=== PATIENT | female | born 1960 | race Caucasian/White ===

== ENCOUNTER 2019-07-22 08:42 | Inpatient (IN) | payer MEDICARE, MEDICAID, SELFPAY ==
[2019-07-19 14:57] VITALS: BMI 37.0
[2019-07-22] VITALS (13 sets, daily range): BP systolic 85–138; BP diastolic 50–85; PULSE 61–84; RESP 12–16; TEMP 36.4–37.1; O2SAT 94–97; BMI 37.0
--- NOTE | 2019-07-22 | DI.RAD.S_ITS ---
PROCEDURE: XR HIP W PEL IF DONE RT 2V INDICATIONS: TOTAL HIP ARTHROPLASTY RIGHT POST OP TECHNIQUE: AP pelvis and lateral view of the right hip acquired. COMPARISON: None. FINDINGS: Bones: Patient is status post right total hip arthroplasty, with hardware components in expected positions. The hip joint appears congruent. The visualized bony structures appear intact. Soft tissues: Overlying postoperative changes are noted. No suspicious soft tissue densities. IMPRESSION: Post right total hip arthroplasty changes with anatomic right hip alignment. Dictated by: Lamine Cam M.D. on 07/22/2019 at 15:23 Approved by: Lamine Cam M.D. on 07/22/2019 at 15:24
--- NOTE | 2019-07-22 08:13 | DI.RAD.S_ITS ---
PROCEDURE: XR PELVIS 1-2V INDICATIONS: Postop right total hip TECHNIQUE: Intra-operative view of the pelvis and hip acquired. COMPARISON: None. FINDINGS: Bones: Intraoperative devices prior to placement of arthroplasty prostheses are in expected positions. No fractures or suspicious bony lesions. Soft tissues: Overlying surgical retractors are present, along with other intraoperative changes. IMPRESSION: Expected intraoperative appearance during left total hip arthroplasty with preliminary components for sizing and angulation in place, in preparation for placement of final components of left total hip arthroplasty. Dictated by: Ferny Marcus M.D. on 07/22/2019 at 13:27 Approved by: Ferny Marcus M.D. on 07/22/2019 at 13:28
[2019-07-22] MEDS: CELECOXIB 200 MG CAPSULE PO (09:09)
[2019-07-22] MEDS: PREGABALIN 75 MG CAPSULE PO (09:09)
[2019-07-22] MEDS: ACETAMINOPHEN 325 MG TABLET 975 MG PO ×3 (09:09→20:16)
[2019-07-22] MEDS: LACTATED RINGERS 1,000 ML 100 ML IV ×2 (09:19→13:15)
[2019-07-22] MEDS: VANCOMYCIN 1,000 MG/200 ML PIGGYBACK 200 MG IV (09:43)
[2019-07-22] MEDS: FAMOTIDINE 20 MG/50 ML PIGGYBACK 200 MG IV (10:45)
--- NOTE | 2019-07-22 11:05 | PM.PREOP ---
Pre-operative Note Interval Note History & Physical reviewed/Exam performed by Physician: Yes Changes to H&P: No H&P completed within 30 days and has changed as indicated here:: UA positive for blood, will repeat postop
--- NOTE | 2019-07-22 11:06 | PM.OP.1 ---
Operative Date/Time/Diagnoses Date of procedure: 07/22/19 Time of procedure: 11:23 Pre-op diagnosis: right hip OA Post-op diagnosis: same Procedure & Clinicians Procedure: Right total hip arthroplasty Same procedure as scheduled: Yes Indications: The patient has had progressively worsening right hip pain with radiographic changes consistent with arthritis. Non-operative management has failed and the patient has requested total hip replacement. The risks, benefits and alternatives to surgery were discussed with the patient prior to proceeding. Risks discussed included, but were not limited to, failure to relieve pain, leg length discrepancy, dislocation, stiffness, infection, nerve damage, deep venous thrombosis, pulmonary embolism, stroke, coma, heart attack, permanent paralysis and , as well as the potential need for eventual revision of the prosthetic. Surgeon: Megan Riley Silversmith Apprentice: Pavithra Holland Anesthesia Type: General Operative Notes Findings: Right hip effusion, severe right hip osteoarthritis, adequate stability Closure Type: primary Specimen(s): none sent Prosthetic devices, grafts, tissues, transplants, or devices: Riley [employer] Nephew R3 54 mm acetabulum, neutral poly liner, 36+ 0 head, size 4 standard offset anthology Applied: drain(s) Estimated Blood Loss (mL): 250 Blood products transfused: none Procedure in detail: The patient was seen in the pre-operative area, where the patient identified the right hip as the operative site and this was marked with my initials. The patient received pre-operative antibiotics and was taken to the operating room and placed on the operative table in the left lateral decubitus position after satisfactory anesthesia. A real time operator out was performed. The right leg was prepared from the ankle to the iliac crest with ChloroPrep in the usual fashion and draped through sterile drapes. The hip was approached through an approximately 24 cm incision centered over the greater trochanter and curving gently posteriorly as it went proximally. This was carried sharply to the fascia dinesh, which was divided and retracted with a self retaining retractor. The trochanteric bursa was excised with care being taken to avoid the sciatic nerve, which was identified and protected throughout the case. The short external rotators were incised and the capsulomuscular flap was raised and tagged for later repair. The hip was dislocated, and a femoral neck osteotomy performed approximately 15 mm above the lesser trochanter. Retractors were placed around the femur. The canal was opened with a box cutting osteotome, followed by a T handled reamer and a lateralizing reamer. The chili pepper broach was then used, followed by sequential broaching until there was good stability of the broach in the femur. Retractors were placed to expose the acetabulum. The labrum and central soft tissues were removed. Reaming was performed initially going up in 2 mm increments, then 1 mm increments until good bite was obtained with an odd sized reamer. The cup 1 mm larger than the last reamer was then inserted using the appropriate anteversion guides. A trial neutral liner was placed. The broach was placed in the canal. A trial head and neck were then placed and the hip relocated and checked for leg length and stability. An intraoperative film confirmed the component position and no evidence of fracture. The patient was stable in the position of sleep, of squatting, and could be put through a range of motion with 45 degrees internal rotation without dislocation. At 90 degrees flexion, internal rotation to 70 was possible before dislocation. This was felt to be satisfactory and the appropriate components were opened, and the trials were removed. The acetabular liner was impacted into position. The final stem was then impacted into the prepared femoral canal. A brief Betadine soak was performed while trialing with head options. The hip was meticulously irrigated with normal saline. Finally the femoral head was impacted onto the stem. The acetabulum was cleared of all material and the hip relocated one final time. The capsulomuscular flap was then repaired to the greater trochanter though an awl hole using the tag sutures. The short external rotators were repaired with a nonabsorbable suture. A deep drain was placed and brought out anteriorly. The fascia dinesh was closed with Vicryl. The subcutaneous layer was closed with barbed sutures and skin beau. A pool dressing was applied and the patient was taken to recovery having tolerated the procedure well. Complications: none Post-operative Condition: stable Disposition: Acute Care Plan for aftercare: The patient will be maintained on a standard total hip replacement protocol with weight bearing as tolerated and posterior hip precautions. The patient will receive Aspirin and sequential compression devices for DVT prophylaxis. The patient will be discharged home when safe for the home environment.
[2019-07-22] MEDS: CEFAZOLIN 2 GM/100 ML FROZ.PIGGY IV ×2 (11:17→18:16)
--- NOTE | 2019-07-22 12:00 | SUR.OPER ---
Lateral on padded OR bed. Gel axillary roll. Arms secured on padded armboard with pillow supporting top arm. Padded hip positioner braces x4 - anterior and posterior chest and pelvis. Additional gel pad used anterior pelvis. Gel pad under bottom leg from knee to foot and secured with tape over sheet.
[2019-07-22] MEDS: TRANEXAMIC ACID 1,000 MG VIAL 1000 MG INJ ×2 (12:04→13:00)
[2019-07-22] MEDS: BUPIVACAINE 0.25% W/ EPI 30 ML VIAL 60 ML INJ (12:05)
[2019-07-22] MEDS: BUPIVACAINE LIPOSOME 266 MG/20 ML VIAL INJ (12:05)
[2019-07-22] MEDS: EPINEPHrine 1 MG/ML AMPUL SUBCUT (12:08)
--- NOTE | 2019-07-22 12:50 | PM.PROC.1 ---
Procedures Date/Time Date of procedure: 07/22/19 Time of procedure: 11:25 Lumbar Puncture Pre-procedure diagnosis: osteoarthritis, for MABEL Post-procedure diagnosis: same Time Out Performed: Yes Patient Position: upright (seated) Skin Prep: Povidone-Iodine 1% Local anesthetic used: Lidocaine 1% Sedation: other (midazolam 1mg) Needle size: other (24g sprotte) Needle length: 3.5 Interspace: L 3-4 Number of attempts: 2 Opening pressure: not done Fluid collected (mL): 0 Fluid description: clear Complications: No Comments: Subarachnoid block (SAB) for Post-op pain management, intrathecal narcotics. 12mg bupivacaine, MPF, and 200mcg DURAMORPH.
[2019-07-22] MEDS: PREGABALIN 50 MG CAPSULE 200 MG PO ×2 (16:00→20:18)
[2019-07-22] MEDS: PANTOPRAZOLE 40 MG TABLET PO (16:01)
[2019-07-22] MEDS: LACTATED RINGERS 1,000 ML 125 ML IV (16:01)
[2019-07-22] MEDS: OXYCODONE/ACETAMINOPHEN 5/325 TABLET 1 TAB PO ×2 (16:08→20:17)
[2019-07-22] MEDS: ALBUTEROL 2.5 MG/3 ML NEB (ADULT) INH (17:22)
[2019-07-22] MEDS: MONTELUKAST 10 MG TABLET PO (18:09)
[2019-07-22] MEDS: diphenhydrAMINE 50 MG/ML VIAL 25 MG IV (18:09)
[2019-07-22 18:42] LABS: Bacteria Urine None Seen
[2019-07-22 18:56] LABS: Culture Indicated Urine Cult Not Indicated; RBC Urine 0-1/HPF (0-5/HPF); WBC Urine 0-1/HPF (0-5/HPF)
[2019-07-22] MEDS: ASPIRIN EC 81 MG TABLET PO (20:18)
[2019-07-22] MEDS: DOCUSATE 100 MG CAPSULE PO (20:18)
[2019-07-23] MEDS: LACTATED RINGERS 1,000 ML 125 ML IV (01:12)
--- NOTE | 2019-07-23 01:22 | PC.NURSE ---
Energy And Conservation Technician Note: Resting in bed. Vital signs stable. IV in place in lt hand with LR infusing at 125cc/hr. Dressing to rt hip cdi, with hemovac intact and compressed. Pt has home CPAP on. resting at bedside.
[2019-07-23] MEDS: OXYCODONE IR 5 MG TABLET PO ×2 (01:48→05:59)
[2019-07-23] MEDS: diphenhydrAMINE 50 MG/ML VIAL 25 MG IV ×3 (01:49→11:34)
[2019-07-23] MEDS: CEFAZOLIN 2 GM/100 ML FROZ.PIGGY IV (02:20)
[2019-07-23 05:56] VITALS: BP 115/74; PULSE 81; RESP 16; TEMP 37.2
[2019-07-23 06:55] LABS: Hematocrit 29.2 % (36-46)
--- NOTE | 2019-07-23 08:08 | PM.DS.1 ---
History of Present Illness History of Present Illness Date Patient Seen: 07/23/19 Time Patient Seen: 08:09 Chief complaint: [id number] RIGHT TOTAL HIP ARTHROPLASTY Narrative: The patient has had progressively worsening right hip pain with radiographic changes consistent with arthritis. Non-operative management has failed and the patient has requested total hip replacement. The risks, benefits and alternatives to surgery were discussed with the patient prior to proceeding. Risks discussed included, but were not limited to, failure to relieve pain, leg length discrepancy, dislocation, stiffness, infection, nerve damage, deep venous thrombosis, pulmonary embolism, stroke, coma, heart attack, permanent paralysis and , as well as the potential need for eventual revision of the prosthetic. Discharge Providers Provider Date of admission: 07/22/19 08:42 Discharge Date: 07/23/19 Primary care physician: Tre Alvarez MD Consults: 07/22/19 08:13 Consult to Anesthesiology Routine Comment: Consulting Provider: Anesthesiologist Reason for consultation: Regional block for post operative pain control 07/22/19 09:36 Consult to Respiratory Therapy Evaluate & Treat Comment: Physician Instructions: Evaluate and treat 07/22/19 12:28 Consult to Respiratory Therapy Evaluate & Treat Comment: asthma, SUSANA+CPAP, post MABEL Physician Instructions: Evaluate and treat 07/22/19 15:23 Consult to Discharge Planning Routine Comment: Consult to Physical Therapy Evaluate & Treat Comment: Physician Instructions: post op MABEL protocol Consult to Respiratory Therapy Evaluate & Treat Comment: Physician Instructions: Evaluate and treat Discharge provider: Erma Campo PA-C Summary Hospital Course Discharge Diagnosis: s/p right total hip arthroplasty posterior approach Sleep apnea with CPAP Restless legs syndrome Osteoporosis Osteoarthritis Iron deficiency anemia Hypertension Migraines GERD Fibromyalgia Asthma Anxiety Hospital Course: Yoly was admitted for a right total hip arthroplasty posterior approach with Dr. Riley. Hospital course was unremarkable. Postop day 1 patient was ready to discharge home. Patient had gross hematuria preoperatively. Urinalysis done last night with no hematuria. Another urinalysis done prior to discharge with trace hematuria. Patient has been on oxycodone 7.5/325 mg preoperatively prescribed by her primary care. She discharged home with oxycodone 10 mg. She is eating and voiding without difficulty or assistance prior to discharge. She was mobilizing with physical therapy prior to discharge. She has outpatient PT scheduled. Anika drain was CDI. ASA 81 mg b.i.d. for DVT prophylaxis. Patient pulled out her drain last night. Status at Discharge Functional status at discharge: uses cane/walker Exam Vital Signs (past 8 hours): - 07/23/19 05:56 Temperature 98.9 F Pulse Rate 81 Respiratory Rate 16 Blood Pressure 115/74 Oxygen Delivery Method Room Air Oxygen Flow Rate 0 Narrative Exam Narrative: Patient is sitting up in bed in no acute distress. She is alert or x3. Compress, nontender bilaterally. Pulses are symmetrical. She is able to actively dorsiflex plantar flex. Anika dressing intact. Drain was removed last night by patient. Patient will need oxycodone 10 mg to control pain. No other complaints. Objective Labs Result Diagrams: 07/23/19 06:46 Labs: Laboratory Results - last 24 hr 07/22/19 07/23/19 17:50 06:46 Hgb 10.0 L Hct 29.2 L Urine RBC 0-1/hpf Urine WBC 0-1/hpf Urine Bacteria None seen Ur Culture Indicated? Cult not indicated Discharge Plan Discharge Plan Patient Disposition: Home Discharge Med Rec/Prescriptions Prescriptions: New acetaminophen 325 mg Tablet 975 mg PO TID Qty: 60 RF: 0 aspirin 81 mg Tablet,Delayed Release (Dr/Ec) 81 mg PO BID Qty: 60 RF: 0 docusate sodium [DOK] 100 mg Capsule 100 mg PO BID Qty: 60 RF: 0 oxycodone 10 mg Tablet 10 mg PO Q4-6H PRN (Reason: Pain, Severe (7-10)) Qty: 50 RF: 0 Continued Lyrica 200 MG capsule 200 mg PO TID Qty: 0 RF: 0 norethindrone ac-eth estradiol [Jinteli] 1 MG/5 MCG tablet 1 tab PO QDAY Qty: 0 RF: 0 meclizine 25 MG tablet 25 mg PO Q6H PRN (Reason: Vertigo) Qty: 0 RF: 0 sumatriptan succinate 50 mg Tablet 50 mg PO Q2-4H PRN (Reason: Migraine Headache) RF: 0 pramipexole 0.5 mg Tablet 0.5 mg PO DAILY RF: 0 albuterol sulfate 90 mcg/actuation Hfa Aerosol Inhaler 2 puff INHALATION Q4-6H PRN (Reason: Shortness Of Breath) RF: 0 Restasis 0.05 % Dropperette 1 drp EYE-BOTH BID RF: 0 Symbicort 160-4.5 mcg/actuation Hfa Aerosol Inhaler 2 puff INHALATION BID RF: 0 albuterol sulfate 2.5 mg /3 mL (0.083 %) Solution For Nebulization 2.5 mg INHALATION QID RF: 0 pantoprazole 40 mg Tablet,Delayed Release (Dr/Ec) 40 mg PO Q2D RF: 0 ferrous sulfate 325 mg (65 mg iron) Tablet 325 mg PO DAILY RF: 0 montelukast 10 mg Tablet 10 mg PO QPM RF: 0 loratadine [Claritin] 10 mg Tablet 10 mg PO DAILY RF: 0 escitalopram oxalate 20 mg Tablet 20 mg PO DAILY RF: 0 diltiazem HCl 120 mg Tablet Extended Release 24 Hr 120 mg PO DAILY RF: 0 Amitiza 24 mcg Capsule 24 mcg PO BID RF: 0 Neupro 6 mg/24 hour Patch 24 Hour 6 mg TRANSDERMAL DAILY RF: 0 Discontinued oxycodone-acetaminophen [Percocet] 7.5-325 mg Tablet 1 tab PO Q8H PRN (Reason: Pain) RF: 0 Follow up/Referrals: Tre Alvarez MD [Primary Care Provider] - As previously scheduled Megan Riley MD [Physician] - Provider Discharge Instructions Activity: [facility] protocol. Posterior hip precautions Cold/Heat Therapy: as needed Skin/Wound/Dressing Care Report to your healthcare provider any signs of infection, such as:: chills, fever and increased pain Dressing: Leave in place until appointment Visit Report/Discharge Packet Instructions: DI for Hip Replacement Stand Alone Forms: Surgery Discharge Visit Report Forms: Stroke Signs & Symptoms Discharge Data Primary Care Provider: Tre Alvarez Quality VTE Deep Vein Thrombosis/Pulmonary Embolism Present on Admission: No
[2019-07-23 08:15] VITALS: BP 135/76; PULSE 80; RESP 18; TEMP 37.2
[2019-07-23] MEDS: ALBUTEROL 2.5 MG/3 ML NEB (ADULT) INH (09:02)
[2019-07-23 09:04] LABS: Bacteria Urine None Seen; RBC Urine None Seen (0-5/HPF); WBC Urine None Seen (0-5/HPF)
[2019-07-23 09:05] VITALS: PULSE 73; RESP 12; O2SAT 95
[2019-07-23 09:15] LABS: Appearance Urine UA CLEAR; Bilirubin Urine UA NEGATIVE (NEGATIVE); Color Urine UA YELLOW; Glucose Urine UA NEGATIVE (Negative); Ketones Urine UA NEGATIVE (NEGATIVE); Leukocyte Esterase Urine UA NEGATIVE (NEGATIVE); Nitrite Urine UA NEGATIVE (Negative); Occult Blood Urine UA TRACE-LYSED (Negative); Protein Urine UA NEGATIVE (Negative); Specific Gravity Urine UA <=1.005 (1.000-1.035); Urobilinogen Urine UA 0.2 E.U./dL (0.2)
[2019-07-23] MEDS: OXYCODONE IR 5 MG TABLET 10 MG PO ×2 (09:18→12:46)
[2019-07-23] MEDS: LORATADINE 10 MG TABLET PO (09:20)
[2019-07-23] MEDS: PREGABALIN 50 MG CAPSULE 200 MG PO (09:20)
[2019-07-23] MEDS: DOCUSATE 100 MG CAPSULE PO (09:20)
[2019-07-23] MEDS: ASPIRIN EC 81 MG TABLET PO (09:20)
[2019-07-23] MEDS: ACETAMINOPHEN 325 MG TABLET 975 MG PO (09:20)
[2019-07-23 09:23] LABS: Culture Indicated Urine Cult Not Indicated; Squamous Epithelial Cell Urine 0-1 /HPF (0-5/HPF)
[2019-07-23] MEDS: ESCITALOPRAM 10 MG TABLET 20 MG PO (09:23)
[2019-07-23] MEDS: dilTIAZem CD 120 MG CAP PO (09:23)
[2019-07-23] MEDS: PRAMIPEXOLE 0.25 MG TABLET 0.5 MG PO (09:23)
[2019-07-23] MEDS: FERROUS SULFATE 325 MG TABLET PO (09:30)
--- NOTE | 2019-07-23 09:33 | CM.IDA ---
Initial DCP Assessment Note: Pt is a 59 yo female, resident of [place], now POD#1 from Rt hip surgery w/ Dr Riley PCP: Tre Alvarez Payer: [facility] [place]/Medicaid Reviewed chart, pt discussed in multidisciplinary rounds this morning. Therapy is pending today, pt has planned for home, DC order from [facility] has already been initiated this morning. No needs expected from DC planning team although will remain available in case this changes today. ASTRID Jovel
[2019-07-23 11:06] VITALS: BP 111/58; PULSE 82; RESP 18; TEMP 36.9
--- NOTE | 2019-07-23 12:21 | PT.IIE ---
Current Diagnoses Unilateral primary osteoarthritis, right hip (07/22/19) Surgery Performed Operation Date: 07/22/19 10:45 Actual Procedures p Total Hip Arthroplasty-Posterior(Right) - Megan Riley MD Surgical History (Last Updated 07/19/19 @ 15:03 by Rola Calvillo RN) History of bilateral knee arthroplasty (Acute) Hx of appendectomy (Acute) Hx of bariatric surgery (Acute) Hx of cholecystectomy (Acute) S/P cervical spinal fusion (Acute) S/P foot surgery, right (Acute) Medical History (Last Updated 07/19/19 @ 15:03 by Rola Calvillo RN) Anxiety (Acute) Asthma (Acute) Chronic constipation (Acute) Fibromyalgia (Acute) Former smoker (Acute) GERD (gastroesophageal reflux disease) (Acute) HTN (hypertension) (Acute) Iron deficiency anemia (Acute) Migraines (Acute) SUSANA on CPAP (Acute) Osteoarthritis (Acute) Osteoporosis (Acute) RLS (restless legs syndrome) (Acute) Vertigo (Acute) Physical Therapy Inpatient Evaluation/Re-Eval M1 PT/OT-IP Prior Functional Status Start: 07/23/19 08:41 Freq: NEEDED Status: Active Protocol: Document 07/23/19 10:20 (Rec: 07/23/19 12:21 [email or web address]) Medical Review Prior Functional Status Medical History Reviewed Yes Diet/Fluid Consistency Regular Communication No deficits noted. Mobility and Gait Pt needed assistance from to get over a 2' threshold for bathtub. Used SPC for mobility occasionally, but mostly independent without using AD for home and community mobility. Activities of Daily Living and IADL's Independent for ADLs and IADLs without AD. Social History Household Members spouse Living Arrangements House Number of Floors (Floors) One Floor Number of Stairs To Enter/Railing? 5 SURAJ with R rail to front porch 1 SURAJ to the deck from the back entrance. Home Environment Standard Height Toilet Home Equipment Straight Cane,Crutches,Raised Toilet Seat Without Armrests, Hand Held Shower Employment Status Unemployed Additional Social History Comment Pt lives with her in [facility]. Pt is disabled and is retired who will be to assist as needed. Pt's son in law and dtr in law live in [place] and able to assist as well. Pt scheduled for outpatient PT at [facility] starting from 30th. M2 PT-IP Current Condition Start: 07/23/19 08:41 Freq: NEEDED Status: Active Protocol: Document 07/23/19 10:20 HH (Rec: 07/23/19 12:21 [email or web address]) Physical Therapy Current Condition Current Condition Evaluation Date 07/23/19 Treatment Diagnosis R MABEL (post approach), difficulty in walking Onset Date 07/22/19 Precautions Posterior Hip Precautions No Hip Flexion > 90 degrees,No Hip Internal Rotation,No Hip Adduction Weight Bearing Status Weight Bearing Status Weight Bear as Tolerated M3 PT-IP Subjective Start: 07/23/19 08:41 Freq: NEEDED Status: Active Protocol: Document 07/23/19 10:20 HH (Rec: 07/23/19 12:21 [email or web address]) Subjective Physical Therapy Visit Type Type Initial Evaluation Visit Start Time 10:20 Visit Stop Time 10:45 Total Visit Minutes 25 Notes Pt's attended session Number of ASSET AVAILABILITY LEADER Visits 0 Physical Therapy Visit Comments Patient Comments I am doing pretty good. Patient Goals to return home with Therapy Pain Assessment Pain When Pain Assessed During Mobility Pain Present Pain Present Pain Reported Location Right Hip Intensity 3 Description Acute Pain Management Techniques Apply Cold,Modification of Treatment,Timing of Activity with Medications M4 PT-IP Mobility and Gait Start: 07/23/19 08:41 Freq: NEEDED Status: Active Protocol: Document 07/23/19 10:20 HH (Rec: 07/23/19 12:21 [email or web address]) PT-Bed Mobility Assessment Rolling Type of Rolling Roll to Right Level of Assist Standby Assistance Supine to Sit Supine to Sit Standby Assistance Sit to Supine Sit to Supine Standby Assistance Scooting Scooting to Edge of Bed Standby Assistance PT-Transfer Assessment Sit to and From Stand Sit to and from Stand Standby Assistance Equipment Transfer Assistive Device Gait Belt,Front Wheeled Walker Orthotic/Prosthetic Devices or Brace: No Transfers Transfer Destination Bed,Chair Transfer Technique Stand Step Pivot Transfer Ability Level of Assist Standby Assistance,Use of Upper Extremities Comments Mobility Comments Pt got up of bed to R side EOB with active straight leg raise on RLE. She stood up with SBA and FWW who was able to evenly WB on both LEs. Pt then amb around the hallway with step through pattern and FWW SBA. Pt appears very steady with a close to normal gait speed. She is also very aware of her precautions and able to use small steps during turns to avoid excessive hip IR. Gait Assessment Gait Gait Assistance Required: Standby Assistance Distance (Feet) 180 Able to Maintain Weight Bearing Status Yes During Gait Assistive Devices Assistive Device Gait Belt,Front Wheeled Walker Orthotic/Prosthetic Devices or Brace: No Gait Deviations General Gait Pattern Antalgic,Decreased Stride Length,Decreased Feet Clearance Factors Limiting Gait Function Factors Limiting Gait Function Decreased Activity Tolerance, Decreased Strength,Limited Range of Motion,Pain Comments Gait Comments see mobility comments Stair Climbing Assessment Evaluation Level of Assist On Stairs 1 Person Assistance Devices Stair Climbing Assistive Devices None Technique/Endurance Stair Climbing Direction Ascend and Descend Stair Climbing Technique Step to Step Number of Steps Climbed 3 Query Text: Stair Climbing Set # Repetitions (reps) 2 Comments Stair Climbing Comments Pt does not have railings for back entrance. Educated to have hand held assistance on her R side for stair climbing. PT-Balance Assessment Sitting Balance and Reactions Static Sitting Balance Ability Normal Dynamic Sitting Balance Ability Normal Standing Balance and Reactions Static Standing Balance Ability Normal Dynamic Standing Balance Ability Normal Device Used FWW M5 PT-IP Objective Assessments Start: 07/23/19 08:41 Freq: NEEDED Status: Active Protocol: Document 07/23/19 10:20 (Rec: 07/23/19 12:21 [email or web address]) Orientation Orientation/Cognition Level of Alertness Alert Orientation Name,Age,Birthday,Month,Date, Year,Day of Week,Place, Situation Language Function Ability No Deficits Noted Safety Awareness Understands Safety Issues Memory Description No Deficits Noted Gross Range of Motion Upper Extremity ROM Assessment Within Functional Limits Lower Extremity ROM Assessment Right Impaired Strength Upper Extremity Strength Assessment Within Functional Limits Lower Extremity Strength Assessment Right Impaired Hip 4/5 Knee 4+/5 Coordination Assessment Gross Coordination Gross Coordination WNL Sensation Assessment Sensation Gross Sensation WNL Light Touch Intact Proprioception (Position) Intact Muscle Tone Muscle Tone WNL Yes M6 PT-IP Treatment Start: 07/23/19 08:41 Freq: NEEDED Status: Active Protocol: Document 07/23/19 10:20 (Rec: 07/23/19 12:21 [email or web address]) Physical Therapy Treatment Exercises Exercises Ankle Pumps,Gluteal Sets,Quad Sets Education Education Provided Precautions,Weight Bearing Status,Post-Op Packet,Safety Equipment Issued Equipment Type and Company FWW M7 PT-IP Assessment and Plan Start: 07/23/19 08:41 Freq: NEEDED Status: Active Protocol: Document 07/23/19 10:20 (Rec: 07/23/19 12:21 [email or web address]) PT Summary Assessment and Plan Potential Rehabilitation Potential Excellent Status of Condition at Evaluation Stable Summary Impairments Pain,ROM,Strength,Bed Mobility ,Transfers,Gait,Activity Tolerance Progress Towards Goals Safe For Discharge Assessment Summary Pt is a low complexity who is post op R MABEL with post approach. Upon assessment, pt recalled all 3/3 precautions and able to perform all bed mobility, transfers and amb with FWW and SBA. Pt also able to climb 3 steps with hand held assistance since she does have railings at home. Educated pt's to assist from pt's right side. Pt overall appears very steady and has good safety awareness so she will be safe to d/c home at this point with family assistance as needed and outpatient PT to improve strength and mobility. Also recommended pt to acquire transfer bench for tub access. Frequency of Treatment Frequency Of Treatment Discharge Recommendations To Nursing Amount of Assist Needed Standby Assistance Discharge Recommendations PT Discharge Recommendations Home with Assistance, Outpatient PT Equipment Needed for Home Before transfer bench Discharge
--- NOTE | 2019-07-23 13:02 | PC.NURSE ---
Pt dressed and ready for discharge home with Spouse. Pt was given pain meds prior to discharge for pain control and reminded to not drive while on narcotics. Pt was also advised to drink plenty of fluids to prevent constipation, not to exceed 4000mg of Tylenol in a 24 hour periord and to follow her hip precautions. Stroke education was completed. Pt is aware of her follow up appointment. Reviewed d/c meds and time of last dose. Pt denies further questions and was taken out via w/c by CLEAN UP PERSON to POV with Spouse and all belongings.
== END 2019-07-23 13:05 | disposition home or self-care (01) | DRG 470 ==
LOC: AC 11:23 → ICU 12:04 → AC 14:57
PROVIDERS: Physician Assistant Surgical; Admitting Provider Orthopaedic Surgery; PCP Family Medicine; Visit Provider Orthopaedic Surgery
PROC: 0SR90JZ Replacement of Right Hip Joint with Synthetic Substitute, Open Approach (ICD-10-PCS; CPT 27130; principal; 2019-07-22 10:45)
DX: M16.11 Unilateral primary osteoarthritis, right hip (principal); M40.15 Other secondary kyphosis, thoracolumbar region; G47.33 Obstructive sleep apnea (adult) (pediatric); G25.81 Restless legs syndrome; I10 Essential (primary) hypertension; K21.9 Gastro-esophageal reflux disease without esophagitis; M79.7 Fibromyalgia; J45.909 Unspecified asthma, uncomplicated; F41.9 Anxiety disorder, unspecified; M25.451 Effusion, right hip; D50.9 Iron deficiency anemia, unspecified; E65 Localized adiposity; R31.0 Gross hematuria; Z98.84 Bariatric surgery status; Z87.891 Personal history of nicotine dependence; Z68.37 Body mass index [BMI] 37.0-37.9, adult
CPT/HCPCS: 36415; 72170; 73502; 81001; 81015; 85014; 85018; 94640; 94760; 94762; 97161; 97530; C1776; C9290; J0171; J0690; J1100; J1200; J2250; J2274; J2405; J2704; J3010; J7613

== ENCOUNTER → 2021-12-18 13:07 | Outpatient (CLI) | payer OTHER, MEDICAID, SELFPAY ==
[2019-07-22 15:35] VITALS: BMI 37.0
[2021-12-18 14:32] LABS: COVID19 -Nasal RAPID Negative (Negative)
== END ==
PROVIDERS: PCP Family Medicine; Visit Provider Family Medicine Sleep Medicine
DX: Z20.822 Contact with and (suspected) exposure to COVID-19 (principal)
CPT/HCPCS: 87635; C9803

== ENCOUNTER 2021-12-21 12:02 | Day surgery (SDC) | payer OTHER, MEDICAID, SELFPAY ==
[2019-07-22 15:35] VITALS: BMI 37.0
[2021-12-07 12:46] VITALS: BMI 35.7
[2021-12-21] VITALS (7 sets, daily range): BP systolic 114–138; BP diastolic 56–81; PULSE 61–72; RESP 12–18; TEMP 36.4–37.2; O2SAT 94–98; BMI 35.7
--- NOTE | 2021-12-21 | DI.RAD.S_ITS ---
PROCEDURE: XR FOOT RT 2V INDICATIONS: RT FOOT 2ND, 3TH AND 4TH JOINT FUSION TECHNIQUE: 3 intraoperative spot fluoroscopic images. COMPARISON: [facility] [place], [place], XR FOOT 3+ VIEWS RIGHT, 02/07/2021, 13:38. FINDINGS: Intraoperative spot fluoroscopic images demonstrate percutaneous wire placement through the 2nd through 4th toes, with the lateral wire extending into the 4th metatarsal. Probable 3rd metatarsal osteotomy with intra fragmentary screw fixation. Stable arthroplasty at the 1st metatarsal head. IMPRESSION: Postsurgical changes to the 2nd through 4th rays as described above. Dictated by: Fazal Cantrell M.D. on 12/21/2021 at 19:34 Approved by: Fazal Cantrell M.D. on 12/21/2021 at 19:36
[2021-12-21] MEDS: LACTATED RINGERS 1,000 ML 100 ML IV (13:02)
--- NOTE | 2021-12-21 14:56 | PM.PREOP ---
Pre-operative Note COVID-19 COVID-19 status: Negative Result date/Date tested (Pos, Neg/Pending): 12/18/21 Interval Note History & Physical reviewed/Exam performed by Physician: Yes Changes to H&P: No
--- NOTE | 2021-12-21 14:57 | PM.OP.1 ---
Operative Date/Time/Diagnoses Date of procedure: 12/21/21 Time of procedure: 14:57 Pre-op diagnosis: Right foot metatarsalgia, painful hammertoes two, three, and four Post-op diagnosis: same Procedure & Clinicians Procedure: 1. Right third metatarsal osteotomy. 2. Right second proximal interphalangeal joint arthrodesis. 3. Third toe proximal and distal interphalangeal joint arthrodesis. 4. Fourth toe proximal and distal interphalangeal joint arthrodesis. Same procedure as scheduled: No (The plantar fourth toe mass was portion of bone removed during fusion.) Indications: Painful metatarsalgia and hammertoes to the right foot. Conservative measures failed to alleviate her pain and she wished to have surgical intervention at this time. We spoke of the risks, potential complications, as well as expected outcomes. Consent was reviewed and signed, no contraindications to the procedures at this time. Surgeon: Amy Olivier Click Yes if Unassisted: Yes Anesthesia Type: General Operative Notes Closure Type: primary Specimen(s): none sent Prosthetic devices, grafts, tissues, transplants, or devices: 0.045 k-wire (x3), 1.5 x12 mm Synthes cortical screw Estimated Blood Loss (mL): 20 Blood products transfused: none Tourniquet time (min): 78 Procedure in detail: The patient was brought to the operating room and placed on the operating table in the supine position. The tourniquet was placed about the right thigh. Well padded, appropriately aligned. After induction of general anesthesia, anesthesia, the skin was prepped and local anesthesia was infiltrated to the forefoot along the 2nd 3rd and 4th rays. The right foot and ankle were prepped and draped in the usual aseptic manner. The tourniquet was inflated. Attention was directed to the 3rd metatarsal head where an incision was made over the dorsal third metatarsophalangeal joint. The incision was deepened through subcutaneous tissues being careful to identify and retract all vital neural and vascular structures. All bleeders were cauterized and ligated as necessary. Once the capsule was entered the metatarsal head and neck were exposed, a saw was used to create an osteotomy starting at the dorsal distal tip of cartilaginous surface of the head of the metatarsal angled proximal and plantar along the metatarsal neck into the shaft. The metatarsal head segment was pushed proximally a few millimeters. A second small cut in the same angle was performed along the shaft to remove some bone to allow for position of the distal component to be recessed and slightly elevated. This was temporarily fixated with a guidewire and checked under mini C-arm for parabola length. Using standard AO technique, a 1.5 mm fully threaded cortical screw was placed across this. Guidewire was removed this was checked under C-arm and strength was good as well as compression. The redundant overhang of the distal 3rd metatarsal shaft was gently reduced using a rongeur and smoothed. Next, incisions were made over the 2nd 3rd and 4th toes starting at the dorsal distal interphalangeal joint and up into the metatarsophalangeal joint. On the 3rd toe this was connected to the prior incision above. These incisions were deepened through subcutaneous tissues being careful to identify and retract all vital neural and vascular structures. All bleeders were cauterized and ligated as necessary. A transection of the extensor at the proximal interphalangeal joint was performed. A saw was used to resect the head of the proximal phalanx and the base of the intermediate phalanx. On the 3rd and 4th toes, this was also performed at the distal interphalangeal joint. The areas were irrigated with copious amounts of normal sterile saline. Using the aid of a C-arm, the 0.045 K-wire was placed in the base of the intermediate phalanx and driven out distally the tip of the toe. This was then retrograded back into the proximal phalanx in good alignment. On the 2nd and 3rd toes, this was placed at the level of the proximal phalanx. At the fourth toe, it was placed across the metatarsophalangeal joint. The placement was confirmed in all 3 planes via use of C-arm. The tourniquet was deflated, a prompt hyperemic response was seen to the foot and toes. Redundant wire was removed from the distal tips of the 2nd 3rd and 4th toes, and the tips of the wire gently bent dorsally and capped. The area was irrigated with copious amounts of normal sterile saline. Extensor repair at the proximal interphalangeal joints was performed using Vicryl. Subcutaneous closure was performed using Vicryl. Nylon was used to close the skin. The exit of the K-wires from the toes was treated with triple antibiotic ointment. Additional infiltration of local anesthesia was performed to the forefoot. The area was dressed with sterile lightly compressive dressing. She was placed in stockinette and postsurgical shoe. She was transferred to the PACU with vital signs stable and vascular status intact Post-operative Condition: stable Disposition: PACU Plan for aftercare: Following a period of postoperative monitoring, the patient will be discharged to home on written and oral postoperative instructions including keeping the dressing dry and intact, she is nonweightbearing on the surgical foot, icing and elevating the foot when seated home. DVT prevention techniques have been reviewed. For the 1st postoperative visit the dressing will be changed and close to the 4thpostoperative week we will take x-rays. As discussed with her pain management provider and myself, she understands her baseline pain management to be the 4 7.5 mg Percocet daily. For the 1st 2 weeks, if necessary. She has an additional 3 that she may use per day and was reviewed the specifics of the timing on how to use that.
[2021-12-21] MEDS: CEFAZOLIN 2 GM/20 ML SYRINGE IV (15:18)
--- NOTE | 2021-12-21 15:33 | SUR.OPER ---
Supine on padded OR bed, head on pillow, arms secured on padded arm boards at <90 degrees abduction, legs uncrossed, safety belt at waist, tape over blanket over lower left leg, gel bump under right hip, right leg draped free .
[2021-12-21] MEDS: BUPIVACAINE 0.5% (PF) VIAL 30 ML INJ (16:35)
[2021-12-21] MEDS: NEOMYCIN/POLYMYXIN/BACITRA UD OINT 1 EACH TOP (16:35)
[2021-12-21] MEDS: OXYCODONE/ACETAMINOPHEN 5/325 TABLET 2 TAB PO (17:41)
== END 2021-12-21 18:14 | disposition home or self-care (01) ==
PROVIDERS: PCP Family Medicine; Referring Provider Orthopaedic Surgery; Visit Provider Podiatrist
PROC: (CPT 28285; principal; 2021-12-21 13:45)
DX: M77.41 Metatarsalgia, right foot (principal); M20.41 Other hammer toe(s) (acquired), right foot; G47.33 Obstructive sleep apnea (adult) (pediatric); I10 Essential (primary) hypertension; G43.909 Migraine, unspecified, not intractable, without status migrainosus; K21.9 Gastro-esophageal reflux disease without esophagitis; D50.9 Iron deficiency anemia, unspecified
CPT/HCPCS: 28308; 28285; 73620; 76000; J0690; J1100; J2405; J2704; J3010